=== PATIENT | female | born 1990 | race Caucasian/White ===

== ENCOUNTER 2020-10-11 14:22 | Emergency (ER) | payer BC, OTHER ==
[~2020-10-11] VITALS: Ht 162.6 cm; Wt 108.3 kg
[2020-10-11 15:42] VITALS: BP 132/98
== END 2020-10-11 15:51 | disposition home or self-care (01) ==
LOC: ED 15:45
DX: R07.89 Other chest pain (principal)
CPT/HCPCS: 71045; 99283